=== PATIENT | female | born 1965 | race Caucasian/White ===

== ENCOUNTER 2017-03-20 19:13 | Emergency (ER) | payer OTHER ==
[~2017-03-20] VITALS: Ht 167.6 cm; Wt 82.9 kg
[~2017-03-20 19:13] MED LIST: CEFDINIR300 MG PO; DOXYCYCLINE MO100 MG PO; GLUCOPHAGE500 MG PO; HUMULIN N100 UNITS/ SC; INDOCIN25 MG PO; KENALOG,ARISTOC80 G1 TP; LANTUS 10100 UNITS/ SC; LASIX20 MG PO; LEVOFLOXACIN500 MG PO; LISINOPRIL-HCT1 EACH PO; LISINOPRIL10 MG PO; MOTRIN800 MG PO; NOVOLIN,HU100 UNITS1 SQ; ZITHROMAX Z-PA250 MG PO
[2017-03-20 20:01] LABS: ADD MIUA? NO; BILIRUBIN NEGATIVE; BLOOD NEGATIVE; COLOR STRAW ((YELLOW)); GLUCOSE (STRIP) 150; KETONES NEGATIVE; LEUKOCYTES NEGATIVE; NITRITE NEGATIVE; PROTEIN (STRIP) NEGATIVE; SPECIFIC GRAVITY 1.005 (1.000-1.030); UCUL ADDED? NO; UROBILINOGEN 0.2 MG/DL (0.2-1.0)
[2017-03-20 20:35] LABS: HEMATOCRIT 36.4 % (36.0-46.0); MCH 26.9 PG (29.0-34.0); MCHC 32.7 G/DL (30.0-36.0); MCV 82.4 FL (83-99); MEAN PLAT.VOLUME 10.3 uM^3 (9.5-12.4); PLATELET COUNT 343 K/uL (156-360); RBC DIS.WIDTH-CV 13.2 % (11.8-14.6); RBC DIS.WIDTH-SD 39.6 % (39-53); RED BLOOD COUNT 4.42 M/uL (3.80-5.20); WHITE BLOOD COUNT 8.2 K/uL (4.1-10.2)
[2017-03-20 20:49] LABS: CHLORIDE 102 mEq/L (99-109); POTASSIUM 3.7 mEq/L (3.7-5.4); SODIUM 138 mEq/L (136-147)
[2017-03-20 20:51] LABS: GLUCOSE 153 mg/dL (70-99)
[2017-03-20 20:52] LABS: ANION GAP 10 MEQ/L (2-14)
[2017-03-20 20:53] LABS: TOTAL BILIRUBIN 0.2 mg/dL (0.0-1.0)
[2017-03-20 20:54] LABS: ALKALINE PHOSPHATASE 67 IU/L (3-129)
[2017-03-20 20:55] LABS: GFR ESTIMATE (CALCULATED) > 59 mL/min/
[2017-03-20 20:56] LABS: UREA NITROGEN (BUN) 12 mg/dL (9-23)
[2017-03-20 20:58] LABS: LIPASE 18 U/L (1.0-51.0)
[2017-03-20 21:05] LABS: QUANTITATIVE HCG < 4.0 MIU/ML
[2017-03-20 21:34] VITALS: BP 124/63
== END 2017-03-20 21:37 | disposition home or self-care (01) ==
LOC: EME 19:13
DX: R10.31 Right lower quadrant pain (principal); E11.9 Type 2 diabetes mellitus without complications; Z79.4 Long term (current) use of insulin; Z88.0 Allergy status to penicillin; Z88.2 Allergy status to sulfonamides
CPT/HCPCS: 80053; 81003; 83690; 84702; 85027; 99281; 99284